=== PATIENT | female | born 1940 | race Caucasian/White ===

== ENCOUNTER → 2017-05-29 | Day surgery (SDC) | payer MEDICARE, OTHER ==
[2017-05-29] VITALS (12 sets, daily range): BP systolic 121–154; BP diastolic 61–88; PULSE 78–91; RESP 14–22; O2SAT 95–99
[~2017-05-29] VITALS: Ht 157.5 cm; Wt 73.6 kg
[~2017-05-29] MED LIST: ACET325T51 PO; AMLO10TA5 PO; Bupivacaine-MPF 0.5% 30 mL Inj INFILTRATE ONE; DOCU240C41 PO; Dexamethasone 4 mg/mL Inj IVPUSH PRN; Dexamethasone 4 mg/mL Inj ONE; EPHEDrine Sulfate 50 mg/mL Inj IVPUSH PRN; FLUC100T4 PO; HYDR-4003 PO; HYDROcodone-APAP 5-325 mg Tablet PO PRN; HYDROmorphone 0.5 mg/0.5 mL iSecure Syringe ONE; HYDROmorphone 1 mg/mL Inj IVPUSH PRN; HYDROmorphone 1 mg/mL Inj ONE; Ketamine 10 mg/mL 20 mL Inj ONE; LITH300T2 PO; Lactated Ringer's 1,000 ML IV ONE; Lactated Ringer's 1,000 ML IV SCH; Lactated Ringer's 500 ML IV PRN; MetoCLOpramide 5 mg/mL 2 mL Inj IVPUSH PRN; OMEP20TA24 PO; Ondansetron 2 mg/mL 2 mL Inj IVPUSH PRN; Ondansetron 2 mg/mL 2 mL Inj ONE; POLY17PO6 PO; POTA20TA16 PO; POTA20TA7 PO; PRAV40TA PO; Phenylephrine 10,000 mCg/mL Inj IVPUSH PRN; Propofol 10,000 mCg/mL 20 mL Inj ONE; QUET25TA PO; TRIA1CAP5 PO; fentaNYL-PF 50 mCg/mL 2 mL Inj IVPUSH PRN; fentaNYL-PF 50 mCg/mL 2 mL Inj ONE
--- NOTE | 2017-05-29 07:53 | PCM.HPANE ---
Patient Data Surgeon Admitting Provider: Attending Provider:Ken Reeder MD Primary Care Physician:Carolyn Titus Other Provider:[facility] Anest[facility] Reason for Visit Left Breast Dcis Ht/WT & BMI Height (Feet): 5 Height (Inches): 4 Weight (Kilograms): 73.93 Body Mass Index 27.00 Allergies Coded Allergies: oxycodone (Verified Allergy, Severe, HALLUCINATIONS, 05/29/17) Past Anesthesia History Anesthesia History: Denies:: Abnormal Airway, Anesthesia Reactions, Difficult Intubation, Fam Anesthesia Reaction, Malignant Hyperthermia Diabetes History Hx Diabetes?: No (last Hgb A1c 6.3 on 02/2017) Type of Diabetes: Diet Controlled Glycemic Control: Diet Controlled MRSA MRSA: No Medications Hypertension Medication: Yes Home Meds Incl Beta Warren: No Active Scripts Polyethylene Glycol 3350 (Miralax)17 Gm Powd.pack17 Gm PO DAILY #1 BOTTLE Prov:Virginia Frank MD 05/29/17 Hydrocodone-Acetaminophen 5-325 mg 1 Each Tablet1 Tablet PO Q4H PRN For Pain # 12 TABLET Ref 0 Prov:Virginia Frank MD 05/29/17 Reported Medications Potassium Chloride 20 Meq Tab.er.prt40 Meq PO AM #270 05/29/17 Acetaminophen 325 Mg Avuxmq396 Mg PO Q4H PRN For Pain Ref 0 05/19/17 Triamterene/HCTZ 37.5-25 mg 1 Each Capsule1 Capsule PO DAILY Ref 0 05/19/17 Docusate Calcium (Stool Softener)240 Mg Qvrkgqj481 Mg PO PRN For Constipation 05/19/17 Quetiapine Fumarate (Seroquel)25 Mg Ilbbuu26 Mg PO HS Ref 0 05/19/17 Omeprazole Magnesium (Prilosec Otc)20 Mg Tablet.dr20 Mg PO DAILY #1 PKG Ref 0 05/19/17 Pravastatin 40 Mg Sxngep38 Mg PO DAILY Ref 0 05/19/17 Amlodipine (Norvasc)10 Mg Zgmqeh20 Mg PO DAILY Ref 0 05/19/17 [place] Carbonate 300 Mg Senlqr030 Mg PO tid/q2d q2d- alternates with bid 05/19/17 Potassium Chloride ER (Klor-Con M20)20 Meq Ilcqnc64 Meq PO HS Ref 0 05/19/17 Fluconazole 100 Mg Rqkihk132 Mg PO TID Ref 0 05/19/17 History History of ENT Problems?: Yes HEENT History: Positive for:: Cataracts (bilateral surgery) Hearing Problem (being worked up for loss/ no aides yet ) Denies:: Abnormal Airway Difficult Intubation Dysphagia Glaucoma Sinus Problem TMJ Denture Type: None Teeth Condition: Within Normal Limits Hx of Heart Problems?: No Cardiovascular History: Positive for:: Hypertension Denies:: AICD Abdominal Aortic Aneurism Atrial Fibrillation Chest Pain Edema Heart Murmur Irregular Heartbeat Pacemaker Peripheral Vascular Hx of Respiratory Problem?: Yes Respiratory History: Positive for:: Use of C-PAP Machine Denies:: Asthma COPD Emphysema Oxygen Administration Pneumonia Tuberculosis Hx Neurologic Problems?: No Neurological History: Denies:: CVA Dizziness Headaches Multiple Sclerosis Parkinson's Disease Seizures Hx of GI Problems?: Yes Hx of Problems?: Yes Genitourinary History: Denies:: Kidney Stones Urinary Tract Infection Female Hx: Positive for:: Problems with Breasts? (left breast ca current admission problem) Denies:: Currently Skin History: Denies:: History Skin Disorders? Pressure Ulcers Hx Musculoskeletal Problems?: Yes Musculoskeletal History: Positive for:: Osteoarthritis (fingers, shoulders ) Denies:: Back Injury Fibromyalgia Joint Replacement Musculoskeletal Trauma Myasthenia Gravis Hx of Psycho/Social Problems?: Yes Psycho Social History: Positive for:: Bipolar Disorder Denies:: Anxiety Hx Depression Hx Surgeries?: Yes (hiatal hernia, hyst, bladder surgery x 2) Hx Any Other Health Problems?: Yes Other History: Positive for:: Cancer (left breast cancer current admission problem) Denies:: Thyroid Disease History Blood Transfusions: Positive for:: Accept Blood Products? Blood Transfusions (with hx of bleeding ulcer a few years ago) Denies:: Blood Transfuse Reaction Hx Diabetes: No (last Hgb A1c 6.3 on 02/2017) Hx Alcohol Use: YesAlcoholic Drinks Per Day: rarely- once every few monthsHx Substance Use: NoHave You Smoked inLast 12 mo: No Stop/Bang Treated for Sleep Apnea?: No Do You Have a CPAP Machine?: No S-Snoring: Do You Snore Loudly: No T-Tired: feel tired, fatigued: No O-Obsered: Observed not breath: No P-Blood Pressure: treated: Yes B- Body Mass Index > 35 kg/m2: No A- Age over 50: Yes N- Neck Large Circumference: No G- Gender Male: No MYLA Total Score: 2 MYLA Risk Assessment: Low Risk, <3 Yes Risk Assessment Category Category 1A: Patient has history of documented sleep apnea, and HAS NOT received any narcotic, sedative or anesthesia administration during this stay. Category 1B: Patient has history of documented sleep apnea, and HAS received any narcotic , sedative or anesthesia administration during this stay Category 2: Patient has SUSPECTED Obstructive Sleep Apnea, and HAS received any narcotic , sedative or anesthesia administration during this stay. Category 3: Patient has SUSPECTED Obstructive Sleep Apnea and HAS NOT received narcotic, sedative or anesthesia administration during this stay. Category 4: Outpatient in Procedural Areas with known sleep apnea or who screen positive for High Risk via the STOP/BANG questionnaire. Exam Exam General Appearance: Alert, Oriented X3, Cooperative, No Acute Distress HEENT/AIRWAY: MP 2 Lungs: Clear to Auscultation, Normal Air Movement Heart: Exam Unremarkable, Regular Rate/Rhythm, No Murmurs/Rubs/Gallops Plan Impression Patient chart reviewed, patient interviewed and anesthestic plan with risks, benefits, and alternatives discussed, and informed consent obtained. ASA Physical Status: ASA2 Mod Systemic Disease Anesthetic Plan: GA Bene/Risks/Altern/Consents: Yes HP Complete Prior to Induction: Yes Paco Jerome MD May 29, 2017 07:53
--- NOTE | 2017-05-29 13:37 | PCM.SURGOP ---
Surgical Operative Report Date of Service: May 29, 2017 Pre Operative Diagnosis Left breast DCIS Post Operative Diagnosis Same Procedure: Wire localized left partial mastectomy, adjacent tissue transfer less than 30 cm Surgeon and Mitten Stitcher: Surgeon: Ken Reeder MD Assistants: Virginia Frank MD PGY-4; Eusebio Esquivel PA-C Indication for Procedure 76-year-old woman who was found to have a 1.2 cm mass on screening mammograms, central to the nipple, posterior depth. Stereotactic biopsy was performed, showing ductal carcinoma in situ, cribriform and papillary type, ER/VT positive. A clip was not placed at the time of her biopsy. She desired breast conserving surgery. After discussion of risks and benefits, she agreed to proceed with wire localized left partial mastectomy. Findings: She had [address] initially because of difficulty with localization. During dissection, the superior wire fell out. Specimen x-ray was performed. Adjacent tissue was transferred from the medial and lateral breast parenchymal pillars with flaps measuring 6 x 4 cm each. Procedure Details Preoperatively, the patient underwent wire localization in the [facility]. She was then brought to the operating room where she underwent smooth induction of general anesthesia with an LMA. She was prepped and draped in wide sterile fashion. A procedural pause was performed according to the SCOAP checklist, and were found to be in agreement. A 5 cm transverse inframammary crease incision was made in the 6 o'clock position, encompassing the inferior wire into the incision. Skin flaps were raised circumferentially, elevating the skin and subcutaneous tissue off the anterior mammary fascia. Once the level of the nipple had been reached, dissection continued posteriorly to the chest wall. The superior wire was encountered, and delivered into the wound. During dissection, however, the superior wire became dislodged, but not until it after it had finished being useful for regarding the extent of dissection. The inferior wire, which more closely approximated the lesion, remained in place. Once the chest wall had been encountered, vertical dissection was performed on both the medial and lateral aspects, essentially creating a wedge shaped resection of the 6:00 quadrant. Dissection continued posteriorly along the inframammary crease to the chest wall. Once this was completed, the excised tissue with the remaining wire intact was oriented with sutures, and the specimen x-ray was obtained. This showed a slight mammographic density, most likely corresponding to the biopsied lesion. That tissue was sent for permanent pathology. Hemostasis was achieved. The lumpectomy cavity was marked with hemoclips circumferentially. Breast parenchymal flaps were developed from the medial and lateral pillars by elevating the breast parenchyma off the underlying chest wall until it was able to easily reapproximate itself, obliterating the space created by the wedge- shaped resection. Approximate diameters of the mobilized medial and lateral pillars were 6 cm craniocaudal by 3 cm transverse. The breast pillars were reapproximated with interrupted 3-0 Vicryl sutures. The skin incision was closed with interrupted deep dermal 3-0 Vicryl sutures, and a running 4-0 Vicryl subcuticular stitch. Steri-Strips and sterile dressings were applied. At the end of the case all needle and sponge counts were correct 2. She was awakened from anesthesia without difficulty, and taken to the recovery room in satisfactory condition, having tolerated the procedure well. Complications There were no periprocedural complications identified. Surgical Specimen Removed: Yes Specimen sent to Pathology: Yes Surgical Specimen description: Left breast tissue, 6 o'clock position. Anesthetic Plan: GA Grafts, Implants: None Output, Estimated Blood Loss: 20 Blood Administration during topete: No Drains: None Catheters: None copies to: Carolyn Titus Joshua D MD May 29, 2017 13:37
--- NOTE | 2017-05-29 15:31 | DRSDI ---
SPECIMEN LEFT BREAST: 05/29/2017 CLINICAL: Breast specimen. Correlation is made to exams dated: 05/29/2017 localization and 04/03/2017 stereotactic biopsy - [facility]. A surgical specimen was imaged for the irregular shaped mass located in the left breast at 6 o'clock posterior depth. This was described on the previous mammography report. IMPRESSION: SPECIMEN The imaged specimen includes the distal portion of the localization wire and the lesion of interest. It does not include biopsy clip as no clip was deployed at the time of stereotactic biopsy. . Follow-up with ACR/ACS guidelines. This exam was interpreted at Station ID: [id number]. [place]/:05/29/2017 14:50:06 Additional referring physicians: ILIANA MEEKS
--- NOTE | 2017-05-30 07:34 | PCM.ANEP1 ---
Post Anesthesia PACU Phase 1 Assessment Anesthetic Administered: GA Level of Alertness: Awake, talking NEVAREZ's with Equal Strength: Yes Pain: No Nausea or Vomiting: No CV Function & Hydration Stable: Yes Airway Device: none Lungs: Clear to Auscultation, Normal Air Movement Dermatome Level: Full Sensation PACU Phase 2 Assessment Complications: No Follow up Care: No Patient Instructions Provided: N/A Paco Jerome MD May 30, 2017 07:34
== END | disposition home or self-care (01) ==
LOC: SAS 10:26
PROVIDERS: ATTEND Student in an Organized Health Care Education/Training Program
DX: D05.12 Intraductal carcinoma in situ of left breast (principal); I12.9 Hypertensive chronic kidney disease with stage 1 through stage 4 chronic kidney disease, or unspecified chronic kidney disease; E78.5 Hyperlipidemia, unspecified; F31.9 Bipolar disorder, unspecified; K21.9 Gastro-esophageal reflux disease without esophagitis; E11.22 Type 2 diabetes mellitus with diabetic chronic kidney disease; M19.90 Unspecified osteoarthritis, unspecified site; N18.9 Chronic kidney disease, unspecified; Z86.010 Personal history of colon polyps; Z17.0 Estrogen receptor positive status [ER+]
CPT/HCPCS: 14001; 19301; 76098; J1100; J1170; J2250; J2405; J2704; J2765; J3010; J7120